=== PATIENT | male | born 1995 | race Caucasian/White ===

== ENCOUNTER 2020-01-20 18:49 | Emergency (ER) | payer OTHER, SELFPAY ==
[2020-01-20 19:05] VITALS: BP 147/86; PULSE 98; RESP 16; TEMP 36.4; O2SAT 99
--- NOTE | 2020-01-20 19:52 | ED.MALEGU ---
HPI - Male Genitourinary General Chief complaint: Urogenital-Male Stated complaint: possible uti History of Present Illness HPI Narrative: This is a 24 white male that presnted to today with complains of urinary hesitance and tingling when he urinate. he alcer has one ulcer on his penus that he has had for one week. Patient noted that in the pass he was dx with prostatitis by his urologist. Patient is currently taking doxcycline for a gastritic infection. He denies dyuria, hematuria,edema, pain or discharge of his testicles or penis. He also denies any STD. His UA has been sent off for STD testing . Associated symptoms: Denies swelling, mass, blood in urine, dysuria, fever, nausea/vomiting and incontinence Related Data Sexually active: Yes Home Medications Medication Instructions Recorded Confirmed doxycycline hyclate 100 mg PO BID 01/20/20 01/20/20 Allergies Allergy/AdvReac Type Severity Reaction Status Date / Time No Known Drug Allergies Allergy Unknown Verified 01/20/20 19:12 Review of Systems Review of Systems: All systems reviewed & are unremarkable except as noted in HPI and below (10 point system reviewed) [facility] Social History Social History Gender identity (if verbalized by the patient): Male Exam Narrative: Exam Narrative: GENERAL: This is a well-nourished, well-developed patient, in no apparent distress. HEAD: normocephalic, atraumatic. EYES: PERRL. Sclera clear/white. Vision is grossly intact. EARS: External ears normal, auditory canals clear and without drainage, TMs normal without perforation. Hearing grossly intact. NOSE: External nose normal with no obvious nasal discharge, nares without redness, no rhinorrhea. THROAT: Mucous membranes moist, posterior pharynx clear. NECK: Neck supple, non-tender without lymphadenopathy, masses or thyromegaly. CARDIOVASCULAR: Regular rate and rhythm without murmurs, gallops, or rubs. RESPIRATORY: Clear to auscultation. Breath sounds equal bilaterally. No wheezes, rales, or rhonchi. GASTROINTESTINAL: Abdomen soft, non-tender, nondistended. Bowel sounds are active. No hepato-splenomegaly, or palpable masses. No guarding. SKIN: warm, intact with no suspicious lesions or rash, good texture and turgor lesion to the left isde of his penis. NEURO: awake, alert, and oriented to person, place and time. There were no obvious focal neurologic abnormalities. Steady gait EXTREMITIES: Normal range of motion. No edema. No calf tenderness. Negative Homans sign bilaterally. BACK: Nontender without deformity or crepitance. No flank tenderness. Course Vital Signs Vital signs: Vital Signs Temperature 97.5 F L 01/20/20 19:05 Pulse Rate 98 01/20/20 19:05 Respiratory Rate 16 01/20/20 19:05 Blood Pressure 147/86 H 01/20/20 19:05 Pulse Oximetry 99 01/20/20 19:05 Temperature 97.5 F L 01/20/20 19:05 Pulse Rate 98 01/20/20 19:05 Respiratory Rate 16 01/20/20 19:05 Blood Pressure 147/86 H 01/20/20 19:05 Pulse Oximetry 99 01/20/20 19:05 MDM - Male Genitourinary Lab Data Attestation: I reviewed the patient's lab results. Labs: Urine Glucose Negative Reference Range: Negative Urine Bilirubin Negative Reference Range: Negative Urine Ketone Negative Reference Range: Negative Urine Specific [place] 1.025 Reference Range:1.001-1.035 Urine Blood Negative Reference Range: Negative * * Urine pH 7.0 Reference Range: 5.0-9.0 Urine Protein Negati
== END 2020-01-20 19:53 | disposition home or self-care (01) ==
PROVIDERS: Emergency Provider Nurse Practitioner
DX: N41.0 Acute prostatitis (principal)
CPT/HCPCS: 81003; 87086; 87491; 87591; 87661; 99213; G0463